=== PATIENT | male | born 1980 | race Caucasian/White ===

== ENCOUNTER 2020-08-18 21:05 | Emergency (ER) | payer OTHER, SELFPAY ==
[2020-08-18 21:13] VITALS: BP 138/88; BP 140/86; PULSE 71; PULSE 90; RESP 16; TEMP 36.6; O2SAT 98; O2SAT 99; BMI 29.1
--- NOTE | 2020-08-18 21:53 | ED_ITS ---
HPI - Overdose General Chief Complaint: ETOH/Substance Use Stated Complaint: elevation Time Seen by Provider: 08/18/20 21:23 Source: EMS Mode of arrival: EMS History of Present Illness HPI Narrative: 39-year-old male with no significant past medical history BIBA after being found unresponsive in car in hotel parking lot. Patient did not arouse to police pounding on window, but they broke window which then awoke patient. Per EMS 3 bags of empty heroin were in car. Patient denies symptoms at present, denies alcohol or illicit drug use. MD complaint: other Related Data Allergies Allergy/AdvReac Type Severity Reaction Status Date / Time No Known Allergies Allergy Unverified 07/18/20 16:40 Review of Systems Review of Systems: Constitutional: No Weight loss, No Fever Cardiovascular: No Chest Pain, No SOB Respiratory: No Cough Gastrointestinal: No Nausea, No Vomiting, No Diarrhea, No Constipation, No Abdominal pain Musculoskeletal: No joint pain, No Myalgias, No Joint Swelling Skin: No Skin Lesions, No rash Neuro: No Weakness, No Numbness, No Paresthesias, No Loss of Consciousness, No Dizziness, No Headache Psych: No Anxiety/Panic, No Depression, No SI/HI Yes all other systems are reviewed and are negative PMFSH Past Medical History Attestation statement: The following information was validated with the patient. Source: nursing notes reviewed Medical History (Updated 08/19/20 @ 00:04 by EDGARD Mata) No known health problems Social History Social History Alcohol intake: never Smoking Status: Current every day smoker Use of substances other than those prescribed or required for medical reasons: No Advance Directives: No Advance Directives Information Provided: No Physical Exam Vital Signs: Vital Signs: Vital Signs Temp Pulse Resp BP Pulse Ox 08/18/20 23:36 65 16 96/62 95 08/18/20 21:13 98 F 71 16 138/88 98 Body Mass Index 29.1 Const: Other: Under the influence General: cooperative Orientation/consciousness: patient oriented x3 HENMT: Head: Yes normal to inspection Ears: hearing grossly normal bilaterally General nose exam: Normal external nose present Face and sinus: Yes normal facial exam Eyes: General: appearance normal, both eyes and all related structures Conjunctivae: conjunctivae normal Sclerae: sclerae normal Corneas: corneas normal Pupils: Equal, round and reactive pupils present EOM: EOMs intact bilaterally Neck: Neck: Yes normal visual inspection and Yes no meningeal signs Resp: Effort & Inspection: normal respiratory effort Auscultation: clear to auscultation bilaterally, no crackles, no rales and no rhonchi Cardio: Rate: regular rate Heart sounds: S1 normal heart sound present and S2 normal heart sound present GI: Inspection: Yes normal to inspection Palpation (GI): Soft to palpation, nontender, no guarding and not rigid Skin: Rashes: no rashes Wounds: no wounds Neuro: General: patient oriented x3, gait normal, tone normal, moves all extremities, no meningeal signs, no focal motor deficits and CN's II-XI intact bilaterally Cranial nerves: Yes Equal, round and reactive pupils present Gait exam (Neuro): Normal gait present Motor exam (neuro): 5/5 motor strength present throughout Extrem: General: Yes normal to inspection Course Course Course Narrative: - MORRIS positive for opiates, benzos, and cocaine. Patient sle eping comfortably on exam. -0200-- ED care transferrd to Dr. Pierre pending clinical sobreity and anticipated d/c home MDM - Overdose MDM Narrative Medical decision making narrative: 39-year-old male with no significant past medical history BIBA after being found unresponsive in car in hotel parking lot. On exam VS, NAD/well-appearing, no focal neuro deficits, ambulating with steady gait. Likely accidental overdose. Plan: MORRIS, observe/reassess Lab Data Labs: Lab Results 08/18/20 Range/Units 21:43 Urine Opiates Screen POSITIVE H (Not Detect) Ur Barbiturates Screen Not Detected (Not Detect) Ur Phencyclidine Scrn Not Detected (Not Detect) Ur Amphetamines Screen Not Detected (Not Detect) U Benzodiazepines Scrn POSITIVE H (Not Detect) Urine Cocaine Screen POSITIVE H (Not Detect) U Marijuana (THC) Screen Not Detected (Not Detect) Discharge Plan Discharge Clinical Impression: Substance abuse Overdose Qualifiers: Encounter type: initial encounter Injury intent: accidental or unintentional Qualified Code(s): T50.901A - Poisoning by unspecified drugs, medicaments and biological substances, accidental (unintentional), initial encounter Patient Disposition: Home, Self-Care Instructions: Polysubstance Abuse (ED) Additional Instructions: Do not take drugs or drink alcohol it can kill you You need to follow-up with your primary care doctor/ therapist/psychologist/psychiatrist Referrals: Physician,Unknown [Primary Care Provider] - 2 days ( your primary care doctor)
[2020-08-18 22:16] LABS: Amphetamine Screen Urine Not Detected (Not Detect); Barbiturates, Urine Not Detected (Not Detect); Benzodiazepines Screen Urine POSITIVE (Not Detect); Cannabinoid Screen Urine Not Detected (Not Detect); Cocaine Screen Urine POSITIVE (Not Detect); Opiate Screen Urine POSITIVE (Not Detect); Phencyclidine Screen Urine Not Detected (Not Detect)
[2020-08-18 23:36] VITALS: BP 96/62; PULSE 65; RESP 16; O2SAT 95
--- NOTE | 2020-08-18 23:41 | PC.NURSE ---
report taken from deena rn, pt resting in stretcher in nad, 99% on ra. pending sober to be d.c home
[2020-08-19 03:23] VITALS: BP 108/63; PULSE 58; RESP 18; O2SAT 94
--- NOTE | 2020-08-19 05:58 | PC.NURSE ---
pt remains sleeping, pending d.c home by provider. nad noted
[2020-08-19 06:27] VITALS: BP 103/69; PULSE 66; RESP 18; O2SAT 99
== END 2020-08-19 07:08 | disposition home or self-care (01) ==
PROVIDERS: Physician Assistant; Emergency Provider Student in an Organized Health Care Education/Training Program
DX: T50.911A Poisoning by multiple unspecified drugs, medicaments and biological substances, accidental (unintentional), initial encounter (principal); Y92.810 Car as the place of occurrence of the external cause; F17.200 Nicotine dependence, unspecified, uncomplicated
CPT/HCPCS: 80307; 99283; 99284